=== PATIENT | female | born 1985 | race Caucasian/White ===

== ENCOUNTER 2021-07-20 16:44 | Observation (INO) | payer BC, SELFPAY ==
--- OUTSIDE RECORDS SUMMARY | 2021-07-20 16:47 | XMS REPORT | Continuity of Care Document ---
:1985 Author Organization [facility] t Address [address] [place] [address] [address] [place] [address] Care Team Providers Name Role Phone Noni Attending Clinician Unavailable ERIC Attending Clinician Unavailable Yadira Attending Clinician Unavailable Noni Admitting Clinician Unavailable ERIC Admitting Clinician Unavailable Yadira Admitting Clinician Unavailable Payers Payer Name Policy Type Policy Number Effective Date Expiration Date S ource [place] [id number] 2016 00:00:00 [place] Problems Condition Condition Condition Status Onset Resolution Last Treating Co mments Source Name Details Category Date Date Treatment Clinician Date Acute Acute Problem Active [facility] pharyngiti Pharyngiti 4-13 da s s 00:00: Medical 00 Group Acute Acute Problem Active [facility] bronchitis Bronchitis 4-13 da 00:00: Medical 00 Group Hypothyroi Hypothyroi Problem Active [facility] Anxiety Anxiety Problem Active [facility] 4-03 [facility] Edema Edema Problem Active [facility] 4-03 [facility] Sinusitis Sinusitis Problem Active [facility] Fatigue Fatigue Problem Active [facility] Right Right Problem Active [facility] upper Upper da quadrant [facility] l pain Pain Group Allergies, Adverse Reactions, Alerts Allergy Allergy Status Severity Reaction(s) Onset Inactive Treating Comm ents Source Name Type Date Date Clinician Penicill DA Active U 2017-03 [facility] [place] PENICILL Allergy Active Hives [facility] INS to da [facility] Medical e Group Social History Smoking Status Start Date Stop Date Source Never Smoker [facility] Outreach Program Medications Ordered Filled Start Stop Current Ordering Indication Dosage Frequency Signature Comments Components Source Medication Medication Date Date Medication? Clinician (SIG) Name Name BD Regular BD Regular No BD Regular [place] Bevel Bevel Bevel da Ericson 25 Ericson 25 Ericson 25 [facility] gauge x 1 gauge x 1 gauge x 1 al 1/2" USE 1/2" USE 1/2" USE Health DIRECTED DIRECTED Outreac DIRECTED h Program escitalopra escitalopra No escitalopr [place] m 10 mg m 10 mg am 10 mg da tablet TAKE tablet TAKE tablet [facility] 1 TABLET 1 TABLET TAKE 1 al (10 MG (10 MG TABLET (10 Healt h TOTAL) BY TOTAL) BY MG TOTAL) Outreac MOUTH 1 MOUTH 1 BY MOUTH 1 h (ONE) TIME (ONE) TIME (ONE) TIME Program EACH DAY EACH DAY EACH DAY levothyroxi levothyroxi No levothyrox [place] ne 50 mcg ne 50 mcg ine 50 mcg da tablet TAKE tablet TAKE tablet [facility] ONE (1) ONE (1) TAKE ONE al TABLET(S) TABLET(S) (1) Healt h BY MOUTH BY MOUTH TABLET(S) Ou treac ONCE A DAY ONCE A DAY BY MOUTH h ONCE A DAY Program DIRECTED. DIRECTED. DIRECTED. lorazepam lorazepam No lorazepam [facility] 0.5 mg 0.5 mg 0.5 mg da tablet TAKE tablet TAKE tablet [facility] 1 TABLET 1 TABLET TAKE 1 al (0.5 MG (0.5 MG TABLET Health TOTAL) BY TOTAL) BY (0.5 MG Ou treac MOUTH EVERY MOUTH EVERY TOTAL) BY h 6 (SIX) 6 (SIX) MOUTH Program HOURS IF HOURS IF EVERY 6 NEEDED FOR NEEDED FOR (SIX) ANXIETY FOR ANXIETY FOR HOURS IF UP TO 10 UP TO 10 NEEDED FOR DAYS DAYS ANXIETY FOR UP TO 10 DAYS triamterene triamterene No triamteren [facility] 37.5 37.5 e 37.5 da mg-hydrochl mg-hydrochl mg-hydroch [facility] orothiazide orothiazide lorothiazi al 25 mg 25 mg de 25 mg Health capsule capsule capsule Outrea c TAKE ONE TAKE ONE TAKE ONE h (1) (1) (1) Program CAPSULE(S) CAPSULE(S) CAPSULE(S) BY MOUTH BY MOUTH BY MOUTH ONCE A DAY ONCE A DAY ONCE A DAY IN THE IN THE IN THE MORNING. MORNING. MORNING. Zithromax Zithromax No Zithromax [place] Z-Carlos Enrique 250 Z-Carlos Enrique 250 Z-Carlos Enrique 250 da mg tablet mg tablet mg tablet [facility] TAKE 2 TAKE 2 TAKE 2 al TABLETS TABLETS TABLETS Health (500 MG) BY (500 MG) BY (500 MG) Outreac ORAL ROUTE ORAL ROUTE BY ORAL h ONCE DAILY ONCE DAILY ROUTE ONCE Program FOR 1 DAY FOR 1 DAY DAILY FOR THEN 1 THEN 1 1 DAY THEN TABLET (250 TABLET (250 1 TABLET MG) BY ORAL MG) BY ORAL (250 MG) ROUTE ONCE ROUTE ONCE BY ORAL DAILY FOR 4 DAILY FOR 4 ROUTE ONCE DAYS DAYS DAILY FOR 4 DAYS BD Luer-Hetal BD Luer-Hetal No BD M [facility] Syringe 3 Syringe 3 Luer-Hetal d a mL 22 x 1 mL 22 x 1 Syringe 3 [facility] 1/2" USE 1/2" USE mL 22 x 1 al DIRECTED DIRECTED 1/2" USE Hea lth Outreac DIRECTED h Program azithromyci azithromyci No azithromyc [place] n 250 mg n 250 mg in 250 mg da tablet TAKE tablet TAKE tablet Medical 2 TABLETS 2 TABLETS TAKE 2 Rosalba up (500 MG) BY (500 MG) BY TABLETS ORAL ROUTE ORAL ROUTE (500 MG) ONCE DAILY ONCE DAILY BY ORAL FOR 1 DAY FOR 1 DAY ROUTE ONCE THEN 1 THEN 1 DAILY FOR TABLET (250 TABLET (250 1 DAY THEN MG) BY ORAL MG) BY ORAL 1 TABLET ROUTE ONCE ROUTE ONCE (250 MG) DAILY FOR 4 DAILY FOR 4 BY ORAL DAYS DAYS ROUTE ONCE DAILY FOR 4 DAYS benzonatate benzonatate No 1capsul TID benzonatat [facility] 200 mg 200 mg e(s) e 200 mg da capsule capsule capsule Medica l Take 1 Take 1 Take 1 Group capsule 3 capsule 3 capsule 3 times a day times a day times a by oral by oral day by route as route as oral route needed. needed. as needed. levothyroxi levothyroxi No levothyrox [place] ne ne ine [facility] prednisone prednisone No 1 Q1D prednisone [facility] 5 mg tablet 5 mg tablet 5 mg d a Take 1 Take 1 tablet Medical tablet tablet Take 1 Group every day every day tablet by oral by oral every day route for 5 route for 5 by oral days. days. route for 5 days. Vital Signs Vital Name Observation Time Observation Value Comments Source Body Weight 2021-06-16 00:00:00 2624 [oz_av] [facility] BP Diastolic 2020-06-06 00:00:00 89 [facility] Height 2020-06-06 00:00:00 63 [in_i] [facility] BMI (Body Mass 2020-06-06 00:00:00 29.1 kg/m2 [facility] [employer] sales [employer] [facility] Index) Health Outreach Program BP Systolic 2020-06-06 00:00:00 127 mm[facility]Hg[facility] Body Weight 2020-06-06 00:00:00 2627.2 [oz_av] [facility] [employer] [facility] BP Diastolic 2019-04-01 00:00:00 69 mm[Hg] [facility] Height 2019-04-01 00:00:00 63 [in_i] [facility] BMI (Body Mass 2019-04-01 00:00:00 29.6 kg/m2 [facility] [employer] [facility] [employer] Medical Index) Group BP Systolic 2019-04-01 00:00:00 111 mm[Hg] [facility] Body Weight 2019-04-01 00:00:00 2672 [oz_av] [facility] Procedures This patient has no known procedures. Plan of Care Planned Activity Planned Date Details Comments Source Diagnostic Test 2021-06-16 rapid strep group [facility] Pending 00:00:00 A, throat [code = Group rapid strep group A, throat] Encounters Start End Encounter Admission Attending Care Care Encounter Source Date/Time Date/Time Type Type Clinicians Facility Department ID 2021-07-07 2021-07-07 Outpatient Zelizabeth_S [facility] [id number] [facility] 02:57:00 02:57:00 [id number] [facility] 2021-06-16 2021-06-16 Outpatient Zjeanniea_S [facility] [id number] [facility] 09:09:00 09:09:00 [id number] [facility] 2021-06-16 2021-06-16 Niocle [facility] [place] - [id number] [facility] 00:00:00 00:00:00 Discovery Lalo da [employer]: [address] [facility] [place] - [address], [place] [address] , Ph. 2020-09-01 2020-09-01 Outpatient SHIMEK_MARY MEHOP MEHOP [id number] [facility] 09:40:00 09:40:00 _ANN [id number] [facility] 2020-09-01 2020-09-01 Outpatient SHIMEK_MARY MEHOP MEHOP [id number] [facility] 09:40:00 09:40:00 _ANN [id number] [facility] 2020-08-26 2020-08-26 Outpatient SHIMEK_MARY MEHOP MEHOP [id number] [facility] 01:38:00 01:38:00 _ANN [id number] [facility] 2020-07-23 2020-07-23 Outpatient SHIMEK_MARY MEHOP MEHOP [id number] [facility] 01:03:00 01:03:00 _ANN [id number] [facility] 2020-06-18 2020-06-18 Outpatient SHIMEK_MARY MEHOP MEHOP [id number] [facility] 01:02:00 01:02:00 _ANN [id number] [facility] 2020-06-06 2020-06-06 Outpatient SHIMEK_MARY MEHOP MEHOP [id number] [facility] 10:53:00 10:53:00 _ANN [id number] [facility] 2020-06-06 2020-06-06 Ashlie FRANCISCO [place] - [id number] [facility] 00:00:00 00:00:00 Himanshu Burrows da [employer]: [address] [facility] [address], [facility] [address] h , Ph. Program 2020-01-22 2020-01-22 Outpatient Yadira [facility] [id number] [facility] 02:37:00 02:37:00 [id number] [facility] 2019-09-04 2019-09-04 Outpatient Yadira [facility] [id number] [facility] 11:08:00 11:08:00 0701 [facility] 2019-04-15 2019-04-15 Outpatient Yadira [facility] [id number] [facility] 09:05:00 09:05:00 [id number] [facility] 2019-04-01 2019-04-01 Outpatient Yadira [facility] [id number] [facility] 06:58:00 06:58:00 0127 [facility] 2019-04-01 2019-04-01 [place] [facility] [place] - [id number] [facility] 00:00:00 00:00:00 Discovery Katlyn da [employer]: [address] [facility] [address], [facility] [address] , Ph. Results This patient has no known results.
[2021-07-20 19:07] LABS: Absolute Lymphocytes (CBC) 1.7 K/uL (0.7-4.9); Hematocrit 36.4 % (36.0-45.0); Lymphocytes % 21.6 % (15.3-44.8); MPV 6.9 fL (7.6-11.3); RBC Red Blood Cell Count 4.48 M/uL (3.86-4.86)
[2021-07-20 19:24] LABS: Albumin 4.1 g/dL (3.4-5.0); Bilirubin Total 0.3 mg/dL (0.2-1.0); Potassium 3.9 mmol/L (3.5-5.1); Protein, Total 7.8 g/dL (6.4-8.2)
[2021-07-20] MEDS ORDERED: MORPHINE 2 MG/ML SYR ONE (20:17)
[2021-07-20] MEDS ORDERED: ONDANSETRON 4 MG/2 ML VIAL ONE (20:17)
[2021-07-20] MEDS ORDERED: NA CHLORIDE 0.9% 1,000 ML ONE (20:17)
--- NOTE | 2021-07-20 21:04 | RAD REPORT ---
EXAM DESCRIPTION: US - Abdomen Exam Limited - 07/20/2021 8:53 pm CLINICAL HISTORY: RUQ pain COMPARISON: No comparisons FINDINGS: The gallbladder demonstrates large shadowing gallstone. The gallbladder with wall appears thickened with mild pericholecystic fluid. The common bile duct is mildly enlarged measuring 7 mm. The liver demonstrates no findings of intrahepatic biliary dilatation. IMPRESSION: Cholelithiasis with gallbladder wall thickening and pericholecystic fluid suggests acute cholecystitis. Mildly prominent common bile duct measuring 7 mm.
[2021-07-20 21:28] LABS: Urine Blood Trace-intact (Negative); Urine Glucose Negative (Negative); Urine Protein Negative (Negative)
[2021-07-20] MEDS ORDERED: METRONIDAZOLE 500mg IVPB 500 MG/100 ML BAG IV ONE (22:04)
[2021-07-20] MEDS ORDERED: Levofloxacin500mg IV 500 MG/100 ML BAG IV ONE (22:04)
--- NOTE | 2021-07-20 22:09 | EDPHYS ---
Physician Documentation [facility] Name: Brenda Le Age: 36 yrs Sex: Female : 1985 Arrival Date: 07/20/2021 Time: 16:48 Bed 26 Private MD: SIERRA Physician Peewee Mandujano HPI: 07/20 20:00 This 36 yrs old Female presents to ER via Ambulatory with complaints of Abdominal Pain, mh7 Back Pain. 20:00 The patient presents with abdominal pain in the right upper quadrant. mh7 20:00 Onset: The symptoms/episode began/occurred 1 week(s) ago. mh7 20:00 The symptoms radiate to the right flank. Associated signs and symptoms: Pertinent mh7 positives: nausea and vomiting, constipation, Pertinent negatives: anorexia, blood in stools, chest pain, diarrhea, dysuria, fever, headache, hematuria, palpitations, shortness of breath, vaginal discharge, vomiting blood. The symptoms are described as intermittent, vague, waxing/waning. Modifying factors: The symptoms are alleviated by nothing, the symptoms are aggravated by food. Severity of pain: At its worst the pain was moderate 3 day(s) ago, in the emergency department the pain has improved moderately. 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 - Social history:: Smoking status: Patient denies any tobacco usage or history of. ROS: 20:00 Constitutional: Negative for fever, chills, and weight loss, Eyes: Negative for injury, mh7 pain, redness, and discharge, ENT: Negative for injury, pain, and discharge, Neck: Negative for injury, pain, and swelling, Cardiovascular: Negative for chest pain, palpitations, and edema, Respiratory: Negative for shortness of breath, cough, wheezing, and pleuritic chest pain, : Negative for injury, bleeding, discharge, and swelling, MS/Extremity: Negative for injury and deformity, Skin: Negative for injury, rash, and discoloration, Neuro: Negative for headache, weakness, numbness, tingling, and seizure, Psych: Negative for depression, anxiety, suicide ideation, homicidal ideation, and hallucinations, Allergy/Immunology: Negative for hives, rash, and allergies, Endocrine: Negative for neck swelling, polydipsia, polyuria, polyphagia, and marked weight changes, Hematologic/Lymphatic: Negative for swollen nodes, abnormal bleeding, and unusual bruising. Exam: 20:00 Constitutional: This is a well developed, well nourished patient who is awake, alert, mh7 and in no acute distress. Head/Face: Normocephalic, atraumatic. Eyes: Pupils equal round and reactive to light, extra-ocular motions intact. Lids and lashes normal. Conjunctiva and sclera are non-icteric and not injected. Cornea within normal limits. Periorbital areas with no swelling, redness, or edema. Neck: Trachea midline, no thyromegaly or masses palpated, and no cervical lymphadenopathy. Supple, full range of motion without nuchal rigidity, or vertebral point tenderness. No Meningismus. Chest/axilla: Normal chest wall appearance and motion. Nontender with no deformity. No lesions are appreciated. Cardiovascular: Regular rate and rhythm with a normal S1 and S2. No gallops, murmurs, or rubs. Normal PMI, no JVD. No pulse deficits. Respiratory: Lungs have equal breath sounds bilaterally, clear to auscultation and percussion. No rales, rhonchi or wheezes noted. No increased work of breathing, no retractions or nasal flaring. Skin: Warm, dry with normal turgor. Normal color with no rashes, no lesions, and no evidence of cellulitis. MS/ Extremity: Pulses equal, no cyanosis. Neurovascular intact. Full, normal range of motion. Neuro: Awake and alert, GCS 15, oriented to person, place, time, and situation. Cranial nerves II-XII grossly intact. Motor strength 5/5 in all extremities. Sensory grossly intact. Cerebellar exam normal. Normal gait. Psych: Awake, alert, with orientation to person, place and time. Behavior, mood, and affect are within normal limits. 20:00 Abdomen/GI: Inspection: abdomen appears normal, Bowel sounds: normal, in all quadrants, mh7 Palpation: moderate abdominal tenderness, in the epigastric area and right upper quadrant, mass, is not appreciated, rebound tenderness, is not appreciated, voluntary guarding, is not appreciated, involuntary guarding, is not appreciated, no appreciated organomegaly, Rectal exam: the exam is deferred, because of patient request, Indicators: McBurney's point is not tender, Mccurdy's sign is negative, Rovsing's sign is negative, Obturator sign is negative, Psoas sign is negative, Liver: no appreciated palpable abnormalities, Hernia: not appreciated. 20:00 Back: No spinal tenderness. No costovertebral tenderness. Full range of motion. [facility] Vital Signs: 17:58 BP 127 / 90; Pulse 87; Resp 18; Temp 98.8; Pulse Ox 100% ; Weight 73.48 kg; Height 5 ww ft. 3 in. (160.02 cm); Pain 6/10; 20:15 BP 123 / 85; Pulse 68; Resp 16 S; Pulse Ox 100% on R/A; Pain 5/10; bb 22:11 BP 133 / 79; Pulse 65; Resp 16 S; Pulse Ox 100% on R/A; Pain 5/10; bb 23:17 BP 127 / 73; Pulse 65; Resp 16 S; Pulse Ox 100% on R/A; Pain 5/10; bb 17:58 Body Mass Index 28.70 (73.48 kg, 160.02 cm) ww MDM: 22:07 Differential diagnosis: bowel obstruction, cholecystitis, Cholelithiasis, gastritis, mh7 gastroesophageal reflux disease, Hepatitis, non-specific abd pain, pancreatitis, Pyelonephritis, Ureterolithiasis, urinary tract infection. Data reviewed: vital signs, nurses notes, lab test result(s), amylase and lipase, CBC, electrolytes, radiologic studies, plain films. Data interpreted: Pulse oximetry: on room air is 100 %. Interpretation: normal. Counseling: I had a detailed discussion with the patient and/or guardian regarding: the historical points, exam findings, and any diagnostic results supporting the discharge/admit diagnosis, lab results, radiology results, the need for further work-up and treatment in the hospital. Response to treatment: the patient's symptoms have mildly improved after treatment. Physician consultation: Amando Landry MD was contacted at 21:45, regarding patient's condition, and will see patient in inpatient room. Admission orders: after a detailed discussion of the patient's condition and case, the admit orders are written by me. 22:09 Patient medically screened. [facility] 07/20 18:21 Order name: CBC with Diff; Complete Time: 19:47 07/20 18:21 Order name: CMP; Complete Time: 19:47 07/20 18:21 Order name: Lipase; Complete Time: 19:47 07/20 21:28 Order name: Urine Dipstick-Ancillary; Complete Time: 21:36 [facility] 07/20 21:29 Order name: Urine --Ancillary (enter results); Complete Time: 22:06 [facility] 07/20 23:19 Order name: COVID-19/FLU A+B (Document "Date of Onset" if Symptomatic) 07/20 20:09 Order name: US Abdomen Limited; Complete Time: 21:36 [facility] 07/21 00:52 Order name: SARS-COV-2 RT PCR [facility] 07/21 01:20 Order name: Influenza Screen (A [facility] 07/20 18:21 Order name: IV Saline Lock; Complete Time: 18:54 07/20 18:21 Order name: Labs collected and sent; Complete Time: 18:54 07/20 20:08 Order name: Urine Dipstick-Ancillary (obtain specimen); Complete Time: 21:27 [facility] 07/20 20:08 Order name: Urine Test (obtain specimen); Complete Time: 21:27 [facility] 07/20 22:20 Order name: NPO EDMS Administered Medications: 20:15 Drug: NS 0.9% 1000 ml Route: IV; Rate: 1000 ml; Site: left antecubital; bb 21:58 Follow up: IV Status: Completed infusion; IV Intake: 1000ml bb 20:15 Drug: Zofran (Ondansetron) 4 mg Route: IVP; Site: left antecubital; bb 20:41 Follow up: Response: No adverse reaction bb 20:17 Drug: morphine 2 mg Route: IVP; Site: left antecubital; bb 20:41 Follow up: Response: Pain is decreased bb 22:10 Drug: Flagyl (metroNIDAZOLE) 500 mg Volume: 100 ml; Route: IVPB; Rate: 200 ml/hr; bb Infused Over: 30 mins; Site: left antecubital; 23:16 Follow up: IV Status: Completed infusion; IV Intake: 100ml bb 22:14 Drug: morphine 4 mg Route: IVP; Site: left antecubital; bb 23:17 Follow up: Response: No change in condition 23:16 Drug: LevaQUIN (levofloxacin) 500 mg Volume: 100 ml; Route: IVPB; Infused Over: 60 bb mins; Site: left antecubital; 07/21 00:20 Follow up: IV Status: Completed infusion; IV Intake: 100ml bb Disposition Summary: 07/20/21 22:09 Hospitalization Ordered Hospitalization Status: Inpatient Admission [facility] Provider: Amando Landry Rachel Condition: Stable [facility] Problem: new [facility] Symptoms: have improved [facility] Bed/Room Type: Standard [facility] Location: [facility] ER HOLD(07/20/21 22:23) Room Assignment: ERHOLD-(07/20/21 22:23) Diagnosis - Acute cholecystitis [facility] Forms: - Medication Reconciliation Form [facility] - SBAR form [facility] Signatures: Dispatcher [employer] Nan Garcia RN RN bb Marisela Blackwood RN RN Mary Waite RN RN Peewee Mandujano MD MD [facility] Kadi Greenwood RN RN ww Corrections: (The following items were deleted from the chart) 07/20 22: 22:09 [place] [facility] [place]: 22:09 [facility] [place]
--- NOTE | 2021-07-20 22:09 | ER ---
Nurse's Notes [facility] Name: Brenda Le Age: 36 yrs Sex: Female : 1985 Arrival Date: 07/20/2021 Time: 16:48 Bed 26 Private MD: Diagnosis: Acute cholecystitis Presentation: 07/20 17:58 Chief complaint: Patient states: Upper abdominal pain that radiates to the back with ww nausea and vomiting. Pain started last week. Unable to eat without nausea. 4 years ago was told she has gallbladder sludge. Coronavirus screen: Client denies travel out of the [place] in the last 14 days. Ebola Screen: Patient denies travel to an Ebola-affected area in the 21 days before illness onset. Initial Sepsis Screen: Does the patient meet any 2 criteria? No. Patient's initial sepsis screen is negative. Does the patient have a suspected source of infection? No. Patient's initial sepsis screen is negative. Risk Assessment: Do you want to hurt yourself or someone else? Patient reports no desire to harm self or others. Onset of symptoms is unknown. 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 - Social history:: Smoking status: Patient denies any tobacco usage or history of. Screenin:15 Abuse screen: Denies threats or abuse. Nutritional screening: No deficits noted. bb Tuberculosis screening: No symptoms or risk factors identified. Fall Risk None identified. Assessment: 20:15 General: Appears in no apparent distress. Behavior is calm, cooperative. Pain: bb Complains of pain in back and abdomen Pain currently is 5 out of 10 on a pain scale. Neuro: Level of Consciousness is awake, alert, obeys commands, Oriented to person, place, time, situation. Cardiovascular: Capillary refill < 3 seconds Patient's skin is warm and dry. Respiratory: Airway is patent Respiratory effort is even, unlabored, Respiratory pattern is regular. GI: Bowel sounds present X 4 quads. Abd is soft and non tender X 4 quads. Derm: Skin is pink, warm \\T\\ dry. Musculoskeletal: Circulation, motion, and sensation intact. 20:41 Reassessment: Patient is alert, oriented x 3, equal unlabored respirations, skin bb warm/dry/pink. pt states pain has improved now 04/15. 22:10 Reassessment: Patient is alert, oriented x 3, equal unlabored respirations, skin bb warm/dry/pink. pt states pain is getting worse again now 07/13 Dr Mandujano notified new orders received pt medicated see MAY. 23:17 Reassessment: Patient is alert, oriented x 3, equal unlabored respirations, skin bb warm/dry/pink. pt states pain is not better but does not want any more medication at this time. Vital Signs: 17:58 BP 127 / 90; Pulse 87; Resp 18; Temp 98.8; Pulse Ox 100% ; Weight 73.48 kg; Height 5 ww ft. 3 in. (160.02 cm); Pain 6/10; 20:15 BP 123 / 85; Pulse 68; Resp 16 S; Pulse Ox 100% on R/A; Pain 5/10; bb 22:11 BP 133 / 79; Pulse 65; Resp 16 S; Pulse Ox 100% on R/A; Pain 5/10; bb 23:17 BP 127 / 73; Pulse 65; Resp 16 S; Pulse Ox 100% on R/A; Pain 5/10; bb 17:58 Body Mass Index 28.70 (73.48 kg, 160.02 cm) ww ED Course: 16:48 Patient arrived in ED. as 17:59 Triage completed. ww 17:59 Arm band placed on. ww 18:53 Initial lab(s) drawn, by dc, sent to lab. Inserted saline lock: 20 gauge in left kj1 antecubital area, using aseptic technique. Blood collected. 19:43 Peewee Mandujano MD is Attending Physician. [facility] 20:09 Nan Paulino, GABY is Primary Nurse. bb 20:15 Patient has correct armband on for positive identification. Bed in low position. Call bb light in reach. Side rails up X 1. Adult w/ patient. alarm security or surveillance monitor on. Pulse ox on. 20:15 IV is patent, is intact. bb 20:55 US Abdomen Limited In Process Unspecified. EDMS 21:27 Urine collected: clean catch specimen, cloudy. bb 22:09 Amando Landry MD is Hospitalizing Provider. 7 22:12 Patient admitted, IV remains in place. bb 22:12 No provider procedures requiring assistance completed. bb 07/21 00:29 COVID-19/FLU A+B (Document "Date of Onset" if Symptomatic) Sent. bb 07:27 Primary Nurse role handed off by Nan Paulino RN bd Administered Medications: 07/20 20:15 Drug: NS 0.9% 1000 ml Route: IV; Rate: 1000 ml; Site: left antecubital; bb 21:58 Follow up: IV Status: Completed infusion; IV Intake: 1000ml bb 20:15 Drug: Zofran (Ondansetron) 4 mg Route: IVP; Site: left antecubital; bb 20:41 Follow up: Response: No adverse reaction bb 20:17 Drug: morphine 2 mg Route: IVP; Site: left antecubital; bb 20:41 Follow up: Response: Pain is decreased bb 22:10 Drug: Flagyl (metroNIDAZOLE) 500 mg Volume: 100 ml; Route: IVPB; Rate: 200 ml/hr; bb Infused Over: 30 mins; Site: left antecubital; 23:16 Follow up: IV Status: Completed infusion; IV Intake: 100ml bb 22:14 Drug: morphine 4 mg Route: IVP; Site: left antecubital; bb 23:17 Follow up: Response: No change in condition bb 23:16 Drug: LevaQUIN (levofloxacin) 500 mg Volume: 100 ml; Route: IVPB; Infused Over: 60 bb mins; Site: left antecubital; 07/21 00:20 Follow up: IV Status: Completed infusion; IV Intake: 100ml bb Intake: 07/20 21:58 IV: 1000ml; Total: 1000ml. bb 23:16 IV: 100ml; Total: 1100ml. bb 07/21 00:20 IV: 100ml; Total: 1200ml. bb Outcome: 07/20 22:09 Decision to Hospitalize by Provider. [email or web address] 22:12 Condition: stable bb 22:12 Instructed on the need for admit. 07/21 12:14 Patient left the ED. ss Signatures: Dispatcher [employer] EDMS Rama Joshua Amelia as Ballard, Brenda, RN RN bb Zuri Monge RN RN ss Sahra [email or web address] Peewee Mandujano MD MD [id number] Kadi Greenwood RN RN ww
[2021-07-20] MEDS ORDERED: ONDANSETRON 4 MG/2 ML VIAL IV PRN (22:16)
[2021-07-20] MEDS ORDERED: ACETAMINOPHEN 325 MG TABLET PO PRN (22:16)
[2021-07-20] MEDS ORDERED: MORPHINE 4 MG/ML SYR IV PRN (22:16)
[2021-07-20] MEDS ORDERED: MORPHINE 4 MG/ML SYR ONE (22:22)
[2021-07-20] MEDS ORDERED: Levofloxacin500mg IV 500 MG/100 ML BAG IV SCH (23:00)
[2021-07-20 23:35] VITALS: BMI 28.7
[2021-07-21] MEDS: METRONIDAZOLE 500mg IVPB 500 MG/100 ML BAG IV SCH ×2 (01:01→06:13)
[2021-07-21] MEDS ORDERED: METRONIDAZOLE 500mg IVPB 0 MG/0 ML BAG IV ONE (01:02)
[2021-07-21] MEDS ORDERED: D5 0.45 NS 1,000 ML IV ONE ×2 (01:02→08:12)
[2021-07-21] MEDS: D5 0.45 NS 1,000 ML IV SCH ×2 (01:05→08:46)
[2021-07-21] MEDS ORDERED: METRONIDAZOLE 500mg IVPB 500 MG/100 ML BAG IV ONE (06:14)
--- NOTE | 2021-07-21 08:33 | P.HP ---
Date of Service: 07/21/21 Chief complaint: Abdominal pain History of present Illness: 36-year-old female presents to the emergency room with 1 week history of biliary colic. Pain is in the right upper quadrant. Pain is associated with nausea and vomiting. Patient also has bloating, belching and heartburn. Patient has constipation but no diarrhea. No blood in her stool and no blood in her urine. No sore throat, headaches, runny nose, cough, dizziness, chest pain, fever or chills. Pain is postprandial in nature. Pain occasionally radiates to the back. Pain became unbearable yesterday and patient came to the emergency room. Review of systems: Otherwise unremarkable Past medical history: Negative Past surgical history: Hysteroscopy Allergies: Penicillin Social history: Patient denies smoking drinks occasionally Family history: Noncontributory Vital signs: Stable, afebrile Physical exam: Awake, alert oriented x3 Head and neck: Cranial nerves II through XII grossly within normal limits, throat clear, neck supple, no JVD, no neck masses and no evidence of icterus Chest: Clear Heart: S1-S2 Abdomen: Soft, nondistended, positive bowel sounds, positive tenderness in the right upper quadrant without rigidity or guarding Extremity: Neurovascular intact, none tender Neuro: Nonfocal Diagnostic data: Laboratory data reviewedLFTs within normal limits. Ultrasound reviewedacute cholecystitis and cholelithiasis with slightly enlarged common bile duct 7 mm. Assessment: Acute cholecystitis and cholelithiasis Plan/recommendation: Admit, n.p.o., IV fluids, IV antibiotics and to the OR for laparoscopic cholecystectomy possible open. Patient understands risk benefits alternatives and agrees to procedure. CC:
[2021-07-21] MEDS ORDERED: Ringers Lactate 1,000 ML IV ONE ×2 (10:05→13:22)
[2021-07-21] MEDS ORDERED: CEFOXITIN SODIUM 1 GM/VIAL ONE (10:14)
[2021-07-21] MEDS ORDERED: MIDAZOLAM HCL 2 MG/2 ML INJ ONE (10:51)
[2021-07-21] MEDS ORDERED: propofoL 200 MG/20 ML VIAL IV ONE (10:51)
[2021-07-21] MEDS ORDERED: ONDANSETRON 4 MG/2 ML VIAL ONE ×3 (10:52→14:54)
[2021-07-21] MEDS ORDERED: dexAMETHasone 10 MG/ML VIAL ONE (10:52)
[2021-07-21] MEDS ORDERED: LIDOCAINE 1% MPF 5 ML VIAL ONE (10:52)
[2021-07-21] MEDS ORDERED: KETOROLAC 30 MG/ML INJ ONE (10:52)
[2021-07-21] MEDS ORDERED: FENTANYL CITR 100 MCG/2 ML ONE (10:55)
[2021-07-21] MEDS ORDERED: ROCURONIUM 50 MG/5 ML VIAL IV ONE (11:46)
[2021-07-21] MEDS ORDERED: Mastisol Adhesive Liq ONE (12:58)
--- NOTE | 2021-07-21 13:01 | P.OP ---
Date of Service: 07/21/21 Preop diagnosis: Acute cholecystitis and cholelithiasis Postop diagnosis: Same Procedure performed: Laparoscopic cholecystectomy Surgeon: Amando Landry MD [employer]itness [employer] Manager: Kirstin BARAKAT Estimated blood loss: Minimal Specimen: Gallbladder Findings: As above Anesthesia: General Complications: None Drains: None Fluids and blood products: Nonapplicable Disposition: Recovery room Operative note: Patient brought to the OR and placed in the supine position. General anesthesia begun. Patient prepped and draped in the usual sterile fashion. Marcaine 0.5% infiltrated locally. 15 blade used to make a 1 cm infraumbilical midline incision. Subcutaneous tissue divided and fascia identified and divided. #1 Vicryl stay suture placed into the the fascia. Peritoneal cavity entered with sharp and blunt dissection. 12 mm trocar placed into the peritoneal cavity under direct vision. Pneumoperitoneum established. 3 5 mm trocar placed. 1 in the epigastric region just to the right of midline and 2 in the right subcostal region. Laparoscopy revealed acute inflammation of the gallbladder. There were few adhesions all on the body and infundibulum of the gallbladder. They were taken down with sharp and blunt dissection. Then fundus retracted superiorly. Infundibulum identified and retracted inferolaterally. Cystic duct and cystic artery clearly identified with blunt dissection. Clips placed and both structures divided. Gallbladder removed from the liver bed utilizing cautery. Fundus of the gallbladder was intrahepatic. Gallbladder retrieved through the umbilicus via Endo Catch bag. Gallbladder sent to pathology. Right upper quadrant irrigated. Effluent clear with no evidence of bleeding or bile leakage appreciated. Minimal oozing noted on the liver bed. Oozing controlled with cautery. Surgicel placed in the gallbladder fossa as a precaution. No further evidence of oozing or bleeding noted. All trochars removed under direct vision. Stay sutures tied to each other to reapproximate the fascial defect. Subcutaneous wounds irrigated. Bleeding controlled with cautery. 3-0 chromic used to reapproximate subcutaneous tissue and closed skin. Sterile dressing applied. Patient awakened and taken to recovery room in good general condition. CC:
[2021-07-21] MEDS ORDERED: NEOSTIGMINE 1 MG/ML -10 ML VIAL ONE (13:02)
[2021-07-21] MEDS ORDERED: GLYCOPYRROLATE 0.2 MG/ML SYR ONE (13:02)
[2021-07-21] MEDS ORDERED: HYDROCODONE/APAP 7.5/325 MG TAB PO PRN (13:03)
[2021-07-21] MEDS: HYDROMORPHONE HCL 1 MG/ML INJ ONE ×2 (13:40→13:45)
[2021-07-21] MEDS ORDERED: MEPERIDINE HCL 25 MG/ML SYR ONE (13:43)
[2021-07-21] MEDS ORDERED: CODEINE 30MG/APAP 300MG TAB ONE (14:42)
[2021-07-21 15:05] VITALS: BP 123/79; TEMP 97.2; O2SAT 99
== END 2021-07-21 14:55 | disposition home or self-care (01) ==
LOC: ER 16:44 → ERHOLD 22:29 → INTOOBSV 22:29
PROVIDERS: ADMIT Surgery; ATTEND Surgery
PROC: 0FT44ZZ Resection of Gallbladder, Percutaneous Endoscopic Approach (ICD-10-PCS; principal; 2021-07-21 13:15)
DX: K80.00 Calculus of gallbladder with acute cholecystitis without obstruction (principal); K59.00 Constipation, unspecified; Z88.0 Allergy status to penicillin; Z79.899 Other long term (current) drug therapy; Z20.822 Contact with and (suspected) exposure to COVID-19
CPT/HCPCS: 85025; 36415; 81025; 88304; 81003; 83690; 80053; 76705; 47562; U0003; J2704; J2710; J2250; J3010; J1100; J2270; J2175; J1170; J7799 ×2; J7120 ×2; J7030; J3490 ×2; J0694; J2405 ×4; G0378